=== PATIENT | female | born 1930 | race Caucasian/White ===

== ENCOUNTER 2018-03-07 14:26 | Outpatient (CLI) | payer OTHER | END 2018-03-07 14:42 | disposition home or self-care (01) | LOC: LAB 14:26 | DX: E11.9 Type 2 diabetes mellitus without complications (principal); E78.00 Pure hypercholesterolemia, unspecified; E78.3 Hyperchylomicronemia; D66 Hereditary factor VIII deficiency; D65 Disseminated intravascular coagulation [defibrination syndrome]; N39.0 Urinary tract infection, site not specified ==

== ENCOUNTER 2018-04-24 09:03 | Day surgery (SDC) | payer OTHER | END 2018-04-24 18:35 | disposition home or self-care (01) | LOC: CIR.AMB 09:03 | DX: S52.121P Displaced fracture of head of right radius, subsequent encounter for closed fracture with malunion (principal) | CPT/HCPCS: 25405; 25118; 25280; C1776 ==